=== PATIENT | male | born 1970 | race Caucasian/White ===

== ENCOUNTER 2022-09-07 11:55 | Emergency (ER) | payer MEDICAID ==
[~2022-09-07] VITALS: Ht 154.9 cm; Wt 56.7 kg
[2022-09-07 12:00] VITALS: BP_SYST 116
--- NOTE | 2022-09-07 12:00 | NUR ---
ER DR. ONTIVEROS EXAMINING PT
[2022-09-07 12:45] LABS: BASOPHILS # (AUTO) 0.1 K/uL (0.0-0.2); BASOPHILS % (AUTO) 1.1 % (0.0-2.0); EOSINOPHILS # (AUTO) 0.1 K/uL (0.0-0.4); EOSINOPHILS % (AUTO) 1.1 % (0.0-4.0); HEMATOCRIT 42.3 % (36-54); HEMOGLOBIN 14.4 g/dL (14.0-18.0); LYMPHOCYTES # (AUTO) 1.3 K/uL (1.0-5.5); LYMPHOCYTES % (AUTO) 19.9 % (20.5-51.5); MEAN CORPUSCULAR HEMOGLOBIN 33 pg (27-31); MEAN CORPUSCULAR HGB CONC 34 % (32-36); MEAN CORPUSCULAR VOLUME 97 fL (79.0-98.0); MONOCYTES # (AUTO) 0.3 K/uL (0.0-1.0); MONOCYTES % (AUTO) 5.4 % (1.7-9.3); NEUTROPHILS # (AUTO) 4.6 K/uL (1.8-7.7); NEUTROPHILS % (AUTO) 72.5 % (40.0-70.0); PLATELET COUNT (AUTO) 251 K/uL (130-430); RED BLOOD CELL COUNT(AUTO) 4.38 MIL/uL (4.2-6.2); RED CELL DISTRIBUTION WIDTH 12.6 % (9.0-15.0); WHITE BLOOD COUNT (AUTO) 6.4 K/uL (4.8-10.8)
[2022-09-07] MEDS ORDERED: NACL 0.9% 1,000 ML IV ONE (12:45)
[2022-09-07 13:02] LABS: ANION GAP 10 (5-15); CALCIUM 8.9 mg/dL (8.4-11.0); CHLORIDE 104 mmol/L (98-107); GLUCOSE 144 mg/dL (70-99); UREA NITROGEN, BLOOD 13 mg/dL (8-21)
[2022-09-07 13:08] LABS: GFR AFRICAN AMERICAN 82 mL/min (>90)
[2022-09-07 13:09] LABS: ALANINE AMINOTRANSFERASE 35 U/L (12-78); ALBUMIN 3.9 g/dL (3.4-4.8); ASPARTATE AMINOTRANSFERASE 26 U/L (10-37); TOTAL BILIRUBIN 0.6 mg/dL (0.0-1.0)
--- NOTE | 2022-09-07 15:56 | NUR ---
Patient to ER bed [facility]2 to gown for evaluation.
[2022-09-07] MEDS ORDERED: iohexoL 350 mgI/mL, 100 ML INFUS..BTL IV ONE (16:03)
[2022-09-07 16:34] VITALS: BP_SYST 115
== END 2022-09-07 16:35 | disposition home or self-care (01) ==
LOC: SED 11:55
DX: R55 Syncope and collapse (principal); R42 Dizziness and giddiness; Z79.899 Other long term (current) drug therapy
CPT/HCPCS: 36415; 71045; 80053; 84484; 85025; 85379; 93005; 99285; Q9967